=== PATIENT | male | born 1975 | race African-American/Black ===

== ENCOUNTER 2021-02-05 08:59 | Inpatient (IN) | payer MEDICARE, MEDICAID ==
[~2021-02-05] VITALS: Ht 188 cm; Wt 142.9 kg
[~2021-02-05 08:59] MED LIST: AMLODIPINE BESY10 MG PO; AMLODIPINE BESYL5 M1 PO; ASA81BEC PO; ASPIR 8181 MG PO; ATORVASTATIN CA10 MG PO; ATORVASTATIN CA40 MG PO; AZITHROMYCIN 2250 MG PO; BASAGLAR K100 UNIT/1 SUBQ; BYSTOLIC 5 MG5 M1 PO; BYSTOLIC10 MG PO; CARDIZEM CD 30300 M1 PO; CARVEDILOL25 MG PO; CATAPRES-TTS 20.2 MG TRANSDERM; CATAPRES0.1 MG PO; CATAPRES0.2 MG PO; CEFUROXIME500 MG PO; CHLORTHALIDONE25 MG PO; CIALIS20 MG PO; CLONIDINE HCL0.3 M3 PO; CLONIDINE-TTS0.3 MG TRANSDERM; COZAAR100 MG PO; DEMADEX20 MG PO; DIALYVITE TABL1 EACH PO; DIOVAN HCT 3201 EAC1 PO; EDARBI40 MG PO; FLEXERIL PO; GABAPENTIN 100100 MG PO; HUMALOG PE100 UNIT/M SC; HUMALOG100 UNIT/1 SUBQ; HUMALOG100 UNIT/2 SQ; HYDRALAZINE 2525 MG; HYDRALAZINE 2525 MG PO; HYDRALAZINE 5050 MG PO; HYDROCHLOROTH12.5 M1 PO; IRBESARTAN-HCT1 EAC1 PO; LANTUS100 UNIT/M SUBQ; LASIX 80 MG TAB80 MG PO; LEVEMIR SUBQ; LEVEMIR100 UNIT/1 SUBQ; LIPITOR 20 MG T20 M1 PO; LIPITOR40 MG PO; LISINOPRIL20 MG PO; LOSARTAN POTAS100 MG PO; METOLAZONE 5 MG5 MG PO; MINOXIDIL2.5 MG PO; NEURONTIN 300300 M1 PO; NEURONTIN300 MG PO; NORVASC10 MG PO; NORVASC5 MG PO; NOVOLOG100 UNIT/1 SUBQ; NOVOLOG100 UNIT/M SUBQ; OLMESARTAN MEDO40 MG PO; PAXIL10 MG PO; PAXIL40 MG PO; PHENERGAN 25 MG25 M1 PO; POTASSIUM20 PO; PROMS25 WY RECTAL; PROTONIX 20 MG20 M1 PO; REGLAN 5 MG TAB5 MG PO; RENVELA800 MG PO; SENSIPAR 30 MG30 M1 PO; SENSIPAR90 MG PO; SPIRONOLACTONE25 M1 PO; TESTOSTERO200 MG/1 M IM; TORSEMIDE20 MG PO; TOUJEO SOL300 UNIT/1 SUBQ; TRADJENTA5 MG PO; TRESIBA FL100 UNIT/1 SUBQ; TYLENOL325 MG PO; VELPHORO500 MG PO; VENTOLIN HFA 1818 GM INH; VIAGRA25 MG PO; VICTOZA 3-0.6 MG/0.1 SQ; VICTOZA0.6 MG/0.1 SUBQ; VITAMIN B12-FO1 EAC1 PO; ZOFRAN ODT4 MG PO
[2021-02-05 09:09] VITALS: BP 153/74
[2021-02-05 09:26] LABS: PCO2 VENOUS 15.8 mmHg (41.0-51.0); PO2 VENOUS 89.9 mmHg (35.0-45.0)
[2021-02-05 09:27] LABS: ABSOLUTE BASOPHILS 0.1 thou/uL (0.0-0.2); ABSOLUTE EOSINOPHILS 0.1 thou/uL (0.0-0.7); ABSOLUTE LYMPHOCYTES 0.8 thou/uL (0.8-5.3); ABSOLUTE MONOCYTES 1.2 thou/uL (0.0-1.2); ABSOLUTE NEUTROPHILS 7.1 thou/uL (1.6-8.1); BASOPHILS 0.8 %; EOSINOPHILS 0.9 %; HEMATOCRIT 38.3 % (42.0-52.0); HEMOGLOBIN 11.8 gm/dL (14.0-18.0); LYMPHOCYTES 8.8 %; MCH 27.3 pg (26.0-34.0); MCHC 30.9 g/dL (28.0-37.0); MCV 88.5 fL (80.0-100.0); NUCLEATED RBCS 0 /100WBC; PLATELET COUNT* 290 thou/uL (150-400); POLYS 76.5 %; RBC 4.32 mil/uL (4.50-6.00); RDW-CV 16.8 % (10.5-14.5); WBC 9.3 thou/uL (4.0-11.0)
[2021-02-05 09:38] LABS: CALCIUM 8.3 mg/dL (8.5-10.1); CREATININE 9.4 mg/dL (0.6-1.3)
[2021-02-05 09:40] LABS: ALBUMIN 3.1 g/dL (3.4-5.0); POTASSIUM 6.2 mmol/L (3.5-5.1); TOTAL BILIRUBIN 0.7 mg/dL (<0.1-1.0); TOTAL PROTEIN 7.5 g/dL (6.4-8.2)
[2021-02-05 16:32] LABS: CALCIUM 7.9 mg/dL (8.5-10.1); CREATININE 9.4 mg/dL (0.6-1.3)
--- NOTE | 2021-02-05 16:32 | EKG ---
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 : 1975 Requested By: Semaj Summers Order Number: [id number] MD: Mayco Le Measurements Intervals [place] Rate: 94 P: 63 [place]: 154 QRS: 90 QRSD: 97 T: -2 QT: 394 QTc: 493 Interpretive Statements Sinus rhythm Low voltage with right axis deviation Anteroseptal infarct, old cannot be excluded Nonspecific inferior ST-T abnormalities No previous ECG available for comparison Electronically Signed On 02-05-2021 16:32:10 CDT by Mayco Le [email or web address] <ELECTRONICALLY SIGNED> By: Mayco Le MD, [facility] 02/05/21 1632 0903 Mayco Le MD, [facility] /EPI
--- NOTE | 2021-02-05 16:34 | EKG ---
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: JAIDEN : 1975 Requested By: Semaj Summers Order Number: [id number] MD: Mayco Le Measurements Intervals [place] Rate: 93 P: 59 FL: 144 QRS: 85 QRSD: 98 T: -5 QT: 395 QTc: 492 Interpretive Statements Sinus rhythm Probable left atrial enlargement Anteroseptal scar cannot be excluded ST elev, probable normal early repol pattern Borderline prolonged QT interval Baseline wander in lead(s) V3 No previous ECG available for comparison Electronically Signed On 02-05-2021 16:34:32 CDT by Mayco Le [email or web address] <ELECTRONICALLY SIGNED> By: Mayco Le MD, [facility] 02/05/21 1634 1014 1014 Mayco Le MD, [facility] /EPI
[2021-02-05 16:35] LABS: POTASSIUM 4.7 mmol/L (3.5-5.1)
--- NOTE | 2021-02-05 16:35 | EKG ---
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 : 1975 Requested By: Semaj Summers Order Number: [id number] MD: Mayco Le Measurements Intervals [place] Rate: 89 P: 63 AR: 143 QRS: 87 QRSD: 100 T: 4 QT: 415 QTc: 505 Interpretive Statements Sinus rhythm Probable left atrial enlargement Low voltage with right axis deviation Prolonged QT interval Baseline wander in lead(s) V3 Compared to ECG 02/05/2021 10:14:29 Right-axis deviation persists Nonspecific inferior ST-T abnormalities persist Electronically Signed On 02-05-2021 16:35:13 CDT by Mayco Le [email or web address] <ELECTRONICALLY SIGNED> By: Mayco Le MD, [facility] 02/05/21 1635 1015 1015 Mayco Le MD, [facility] /EPI
[2021-02-05 18:47] VITALS: BP 148/79
[2021-02-05 19:32] LABS: BE -11.3 mmol/L (-2 to +3); PCO2 VENOUS 37.6 mmHg (41.0-51.0); PO2 VENOUS 147.9 mmHg (35.0-45.0)
[2021-02-05 22:10] VITALS: BP 163/69
[2021-02-05 23:01] VITALS: BP 192/90
[2021-02-06] VITALS (44 sets, daily range): BP systolic 73–172; BP diastolic 38–81
--- NOTE | 2021-02-06 02:40 | NUR ---
started pt on Bipap 15 Ipap pt unable to beryl the pressure decreased to 10 Ipap Pt stated beryl better. cont to monitor.
[2021-02-06 03:24] LABS: HEMATOCRIT 35.6 % (42.0-52.0); MCH 27.7 pg (26.0-34.0); MCHC 33.8 g/dL (28.0-37.0); MCV 82.1 fL (80.0-100.0); MPV 7.6 fl. (7.2-11.1); NUCLEATED RBCS 0 /100WBC; PLATELET COUNT* 266 thou/uL (150-400); RBC 4.34 mil/uL (4.50-6.00); RDW-CV 16.2 % (10.5-14.5); WBC 7.5 thou/uL (4.0-11.0)
[2021-02-06 03:25] LABS: ALBUMIN 2.9 g/dL (3.4-5.0); ALKALINE PHOSPHATASE 159 U/L (46-116); ANION GAP 12 mmol/L (7-16); BUN 44 mg/dL (7-18); CALCIUM 8.1 mg/dL (8.5-10.1); CHLORIDE 98 mmol/L (98-107); CO2 29 mmol/L (21-32); GLUCOSE 147 mg/dL (70-99); MAGNESIUM 2.1 mg/dL (1.8-2.4); SGOT 22 U/L (15-37); SGPT 11 U/L (30-65); SODIUM 139 mmol/L (136-145); TOTAL BILIRUBIN 0.5 mg/dL (<0.1-1.0); TOTAL PROTEIN 7.1 g/dL (6.4-8.2)
[2021-02-06 03:27] LABS: ALBUMIN 2.9 g/dL (3.4-5.0); CALCIUM 8.2 mg/dL (8.5-10.1); MAGNESIUM 2.1 mg/dL (1.8-2.4); PHOSPHORUS* 3.2 mg/dL (2.5-4.9)
[2021-02-06 03:30] LABS: CREATININE 6.6 mg/dL (0.6-1.3); POTASSIUM 3.5 mmol/L (3.5-5.1)
[2021-02-06 04:30] LABS: ABSOLUTE EOSINOPHILS 0.4 thou/uL (0.0-0.7); ABSOLUTE LYMPHOCYTES 0.5 thou/uL (0.8-5.3); ABSOLUTE MONOCYTES 1.3 thou/uL (0.0-1.2); ABSOLUTE NEUTROPHILS 5.4 thou/uL (1.6-8.1); ATYPICAL LYMPHS 2 %; OVALOCYTES 1+; PLATELET ESTIMATE ADEQUATE; TOXIC GRANULATION 2+
[2021-02-06 08:26] LABS: ALBUMIN 2.8 g/dL (3.4-5.0); CALCIUM 8.3 mg/dL (8.5-10.1); MAGNESIUM 2.1 mg/dL (1.8-2.4); PHOSPHORUS* 3.9 mg/dL (2.5-4.9); POTASSIUM 4.1 mmol/L (3.5-5.1)
--- NOTE | 2021-02-06 14:57 | NUR ---
this pattern chart writer assumed care of pt at 0700 pt was downgraded to teley status per dr suárez insulin gtt d/c labs within normal range sliding scale initiated at 1400 pt became hypotensive paged the dr for orders 500ml fluid bolus ordered per dr suárez keep patient in icu overnight
--- NOTE | 2021-02-06 16:13 | NUR ---
Patient admitted to ICU for DKA and hyperkalemia. Was on insulin gtt but it has since been turned off. Met with patient at bedside with his Minna. Patient currently lives at home in a house with his and 2 children. There are 5-6 stairs inside the home. Prior to admission patient was able to ambulate independently and complete all ADLs with minimum assistance. One of the patient sons is currently his reed or wind instrument repairer through [facility]. states that their son is paid to help the patient 2 days/week for up to 20 hours. The son that helps lives at home with the patient. No hx of O2, bipap/cpap, infusion therapy or BHS. Current dialysis patient at [facility]. Patient goes to dialysis [facility]. Patient recieved dialysis yesterday while at the hospital. PCP is Pamela Heard ([facility]). is listed as DPOA on facesheet but there is no paperwork on file. states that she is his DPOA. Asked for paperwork to be jaylan up. asked about obtaining a shower chair and grab bars before discharge. Provided patient with OTC resource information for patient to obtain equipment via his Medicare benefits. Patient may downgrade to tele today. DC summary will need to be faxed to [facility] at discharge. May need HH at discharge. [facility] PH: [phone] F: [phone]
[2021-02-07] VITALS (30 sets, daily range): BP systolic 101–211; BP diastolic 49–99
--- NOTE | 2021-02-07 02:52 | NUR ---
2200-PT HAS DRY HEAVES WITH NAUSEA. REFUSED BIPAP
[2021-02-07 04:17] LABS: ALBUMIN 2.7 g/dL (3.4-5.0); CALCIUM 8.6 mg/dL (8.5-10.1); PHOSPHORUS* 4.6 mg/dL (2.5-4.9); POTASSIUM 3.8 mmol/L (3.5-5.1)
[2021-02-07 04:18] LABS: CREATININE 9.2 mg/dL (0.6-1.3)
--- NOTE | 2021-02-07 05:49 | NUR ---
ASSUMED CARE AT 1910H, ON RA AND TOLERATED. WITH SLEEP APNEA NOTED, BIPAP NOT USE BECAUSE PT WAS NAUSEOUS. PRN MED GIVEN FOR NAUSEA. NO EPISODE OF HYPOTENSION. CONTINUE MONITORING AND TOWARDS GOAL.
--- NOTE | 2021-02-07 09:43 | NUR ---
ICU Rounds: Patient stayed in ICU overnight due to hypotension. Fluid bolus given. If patient is considered stable patient can downgrade to tele today. Patient could dc over the weekend if health remains stable. NO needs anticipated at discharge. feels she has enought support at home to care for patient.
[2021-02-08] VITALS: BP 137/70
--- NOTE | 2021-02-08 03:29 | NUR ---
ASSUMED CARE OF PT AT 1900. PT IS ALERT AND ORIENTED. VSS. PERRLA. NO COMPLAINTS OF PAIN. PT IS IN SIUS RYTHM ON THE TELEMETRY. PT IS RESTING COMFORTABLY IN BED. RESPIRATIONS ARE EVEN AND NONLABORED. WILL CONTINUE TO MONITOR PT.
[2021-02-08 04:00] VITALS: BP 173/84
[2021-02-08 08:00] VITALS: BP 160/80
[2021-02-08] MEDS ORDERED: MINOXIDIL2.5 MG PO (09:51)
[2021-02-08 10:56] LABS: CALCIUM 8.2 mg/dL (8.5-10.1); POTASSIUM 3.6 mmol/L (3.5-5.1)
[2021-02-08 10:57] LABS: CREATININE 7.4 mg/dL (0.6-1.3)
[2021-02-08 12:00] VITALS: BP 190/90
[2021-02-08 12:53] VITALS: BP 190/90
--- NOTE | 2021-02-08 13:56 | NUR ---
patient resting in room in bed. call light within reach. No complaints at this time. d/c papers given, verbalized understanding. IV taken out, heart monitor off. Waiting for . Has all belongings, will take out by wheelchair.
--- NOTE | 2021-02-08 15:02 | CON ---
[address] [address] CONSULTATION Name: NORTH HUYNH Room: [address] IN M.R.#: [id number] Admission: 02/05/21 Attend Phys: Micheline Lei MD Discharge: Date of : 75 Report #: [id number] THIS REPORT FOR: cc: Pamela Heard DNP, Mary E. DNP Khan, Abid R. MD ~ DATE OF CONSULTATION: 02/06/2021 CONSULT REQUESTED BY: Dr. Micheline Lei. REASON FOR CONSULTATION: End-stage kidney disease. HISTORY OF PRESENT ILLNESS: A 45-year-old gentleman with a history of end-stage kidney disease, on hemodialysis Wednesday, Wednesday and Wednesday, who was admitted with DKA. He also recently underwent a Omar-en-Y gastric bypass. He had a pH of 7.09 and a bicarbonate of 4 on admission with a blood sugar of nearly 600. He was urgently dialyzed last night, tolerated that well. He currently is a bit groggy, but awake and alert, able to answer questions. He has no complaints at this time. REVIEW OF SYSTEMS: Constitutional, psych, heme, eyes, ENT, respiratory, cardiac, GI, , endocrine, all negative except as documented above. PAST MEDICAL HISTORY: End-stage kidney disease, on hemodialysis, insulin-dependent diabetes, hypertension, morbid obesity, status post Omar-en-Y gastric bypass, obstructive sleep apnea, on CPAP, history of laparoscopic cholecystectomy, depression, anxiety, dyslipidemia. SOCIAL HISTORY: No tobacco. FAMILY HISTORY: Not pertinent for this 45-year-old gentleman. CURRENT MEDICATIONS: Reviewed. PHYSICAL EXAMINATION: VITAL SIGNS: Blood pressure is 129/56, pulse 85, respirations 21, temperature 35.9. GENERAL: No acute distress. Eyes are open. EARS: Externally normal. CARDIOVASCULAR: Regular rate. LUNGS: No crackles. ABDOMEN: Soft. MUSCULOSKELETAL: Nontender. PSYCHIATRIC: Somnolent, [place] [address] CONSULTATION Name: NORTH HUYNH Room: [address] IN [facility].#: [id number] Admission: 02/05/21 Attend Phys: Micheline Lei MD Discharge: Date of : 75 Report #: [id number] LABORATORY DATA: Sodium 138, potassium 4.1, chloride 97, bicarbonate 21, BUN 47, creatinine 7, glucose 239, calcium 8.3, phosphorus 3.9, magnesium 2.1. White cell count 7.5, hemoglobin 12, platelets 266. ASSESSMENT AND PLAN: 1. End-stage kidney disease, on hemodialysis Wednesday, Wednesday and Wednesday at the [facility] under the care of Dr. Vega. He dialyzes for 5-1/2 hours. 2. Insulin-dependent diabetes with an admission diagnosis of DKA with a bicarbonate of 5 and a pH of 7.09. 3. Hypertension. 4. Dyslipidemia. 5. Morbid obesity with recent gastric bypass surgery. 6. Obstructive sleep apnea, on CPAP. 7. Depression/anxiety. 8. Secondary hyperparathyroidism, on sevelamer. PLAN: No indications for further dialysis today. We will plan dialysis tomorrow. We will follow for dialysis needs and check labs again in a.m. Thank you for requesting my opinion in the care and management of this patient. <ELECTRONICALLY SIGNED> By: Gogo Shetty MD 02/08/21 1502 0925 1014Asheela Shetty MD /nt
== END 2021-02-08 14:20 | disposition home or self-care (01) | DRG 637 ==
LOC: M.ERS 08:59 → M.TBA-ER 14:19 → M.ERS 14:19 → M.ICU 14:45 → M.TBA-ER 14:45 → M.ICU 21:57 → M.2W 02-07 15:06
PROVIDERS: Emergency Medicine Emergency Medical Services; Internal Medicine Nephrology; ADMIT Internal Medicine; ATTEND Internal Medicine
PROC: 5A09357 Assistance with Respiratory Ventilation, Less than 24 Consecutive Hours, Continuous Positive Airway Pressure (ICD-10-PCS; principal; 2021-02-06)
DX: E11.10 Type 2 diabetes mellitus with ketoacidosis without coma (principal); N18.6 End stage renal disease; G93.41 Metabolic encephalopathy; I12.0 Hypertensive chronic kidney disease with stage 5 chronic kidney disease or end stage renal disease; Z68.41 Body mass index [BMI] 40.0-44.9, adult; N17.9 Acute kidney failure, unspecified; E11.00 Type 2 diabetes mellitus with hyperosmolarity without nonketotic hyperglycemic-hyperosmolar coma (NKHHC); E66.01 Morbid (severe) obesity due to excess calories; E78.5 Hyperlipidemia, unspecified; F41.8 Other specified anxiety disorders; E11.22 Type 2 diabetes mellitus with diabetic chronic kidney disease; G47.33 Obstructive sleep apnea (adult) (pediatric); F32.9 Major depressive disorder, single episode, unspecified; E87.5 Hyperkalemia; F41.9 Anxiety disorder, unspecified; E78.00 Pure hypercholesterolemia, unspecified; Z20.822 Contact with and (suspected) exposure to COVID-19; Z98.84 Bariatric surgery status; Z99.81 Dependence on supplemental oxygen; Z79.4 Long term (current) use of insulin; Z79.899 Other long term (current) drug therapy; Z86.73 Personal history of transient ischemic attack (TIA), and cerebral infarction without residual deficits; Z90.49 Acquired absence of other specified parts of digestive tract; Z88.8 Allergy status to other drugs, medicaments and biological substances; Z91.013 Allergy to seafood; Z99.2 Dependence on renal dialysis

== ENCOUNTER 2021-05-28 18:20 | Inpatient (IN) | payer MEDICARE, MEDICAID ==
[~2021-05-28] VITALS: Ht 175.3 cm; Wt 109.3 kg
--- NOTE | ~2021-05-28 | EEG ---
[address] [address] EEG STUDY REPORT Name: NORTH HUYNH GORDY Room: [address] IN M.R.#: [id number] Admission: 05/28/21 Attend Phys: Akua Mcintyre Discharge: 05/31/21 Date of : 75 Report #: [id number] THIS REPORT FOR: cc: Pamela Heard DNP, Mary E. DNP Khosla, Parveen K. MD ~ DATE OF SERVICE: 05/30/2021 This patient is being evaluated for some weakness. EEG was done by placing the electrode by standard 10-20 system of electrode placement. Both referential and sequential montages were used for recording. Background activity in this patient's EEG is about 7 Hz and 15 microvolt. The patient became drowsy that is associated with even more slowing. Photic stimulation is unremarkable. Throughout the record, no active epileptiform activity was noticed. IMPRESSION: This patient's EEG is slow, which is a nonspecific finding which can occur with encephalopathy, effect of psychotropic medication, dementia, etc. Clinical correlation is recommended. By: 1330 [id number] Treviño MD /nt
--- NOTE | ~2021-05-28 | CON ---
[address] [address] CONSULTATION Name: LINONORTH LEE Room: [address] ADM IN M.R.#: [id number] Admission: 05/28/21 Attend Phys: Akua Mcintyre Discharge: Date of : 75 Report #: [id number] THIS REPORT FOR: cc: Pamela Heard DNP, Mary E. DNP Khosla, Parveen K. MD ~ DATE OF CONSULTATION: 05/29/2021 HISTORY OF PRESENT ILLNESS: This is a 45-year-old male patient, very difficult to evaluate. He basically sleeps there and will open his eyes and follow commands when he feels like, but other times he will not follow. He will talk very softly and he can raise his voice some times, but he will not do it on a persistent basis. There is a long note in the patient's chart about his condition, which is complicated. He apparently had a stroke within a month. I am not sure how did that stroke affected him, but it is like it was an insular stroke. I will not repeat the note from Emergency Room here. He was getting dialysis when I saw him. As I said, some times he will say some time will not, but he can say when he wants to. He has a history of hypertension, but after gastric bypass surgery his hypertension actually became hypotension. He is a dialysis patient. He has ataxia . He has chest pain. He has congestive heart failure. He has a history of dehydration in the past. He has a history of diabetes, has a history of headaches, but he was not complaining of headache when I saw him. This was his relevant 14-point review of systems. PAST MEDICAL HISTORY: Positive for being on dialysis. FAMILY HISTORY: He will not tell me. SOCIAL HISTORY: Apparently, he is and we will try to get hold of the patient's . PHYSICAL EXAMINATION: His examination was limited because he will not cooperate even after spending a lot of time with him. Ultimately, he opened his eyes, he followed the commands when he wants to, but not most of the time. He talks very softly, very difficult to understand his voice. His cranial nerve examination and neuromuscular examination was attempted, is very incomplete. He will not relax for reflexes and he will not cooperate with the sensory examination. Cardiac examination appear noncontributory. No respiratory difficulty was noticed. Blood pressure is 159/89, respirations 18, pulse is 80, temperature is 97. LABORATORY DATA: Labs indicate a white count of 9.1. He did have a CT scan of the head and C-spine when he came in that showed no acute process, but the patient had an MRI and CT angiogram in [facility] which is not available to me but report is available. He also had psych consult for [place] [address] CONSULTATION Name: NORTH HUYNH Room: [address] IN ..#: [id number] Admission: 05/28/21 Attend Phys: Akua Mcintyre Discharge: Date of : 75 Report #: [id number] sure what the behavior was that time. IMPRESSION: Impression is very difficult to form in this patient and tell how much symptoms are organic and how much is psychogenic. He is very predisposed to have stroke and I am going to order an in this regard to look at the MRI. If he already had a CT angio of the head and neck recently, we will just get those records, but if MRI shows a new stroke then we may have to repeat the MRA. I will also get an EEG done. I will get as such vitamin B12 and copper because of his previous gastric bypass surgery. Rest of the workup will depend upon the outcome of these testings. He had a stroke within a month and symptoms are going on at least for days, so he is not any intervention candidate, but we will await this workup and go from there. Thank you very much for this referral Dr. Reilly. We will follow up this patient with you from tomorrow. By: 09 29Pierre Treviño MD /matilda
[2021-05-28 18:23] VITALS: BP 126/60
[2021-05-28] MEDS ORDERED: ELIQUIS5 MG PO (18:46)
[2021-05-28] MEDS ORDERED: COLACE100 MG PO (18:47)
[2021-05-28] MEDS ORDERED: LIPITOR 10 MG10 M1 PO (18:47)
[2021-05-28] MEDS ORDERED: TUMS ULTRA400 MG PO (18:47)
[2021-05-28] MEDS ORDERED: LANTUS SUBQ (18:48)
[2021-05-28] MEDS ORDERED: REGLAN 5 MG TAB5 MG PO (18:48)
[2021-05-28] MEDS ORDERED: KEPPRA XR500 MG PO (18:48)
[2021-05-28] MEDS ORDERED: PAXIL40 MG PO (18:49)
[2021-05-28] MEDS ORDERED: MIDODRINE HCL 55 M1 PO (18:49)
[2021-05-28 18:57] LABS: ABSOLUTE BASOPHILS 0.1 thou/uL (0.0-0.2); ABSOLUTE EOSINOPHILS 0.2 thou/uL (0.0-0.7); ABSOLUTE LYMPHOCYTES 2.3 thou/uL (0.8-5.3); ABSOLUTE MONOCYTES 1.4 thou/uL (0.0-1.2); ABSOLUTE NEUTROPHILS 5.1 thou/uL (1.6-8.1); BASOPHILS 1.1 %; EOSINOPHILS 2.4 %; HEMATOCRIT 34.2 % (42.0-52.0); HEMOGLOBIN 10.9 gm/dL (14.0-18.0); LYMPHOCYTES 25.5 %; MCH 27.4 pg (26.0-34.0); MCV 85.8 fL (80.0-100.0); MONOCYTES 14.9 %; MPV 8.1 fl. (7.2-11.1); NUCLEATED RBCS 0 /100WBC; PLATELET COUNT* 319 thou/uL (150-400); POLYS 56.1 %; RBC 3.99 mil/uL (4.50-6.00); RDW-CV 16.6 % (10.5-14.5); WBC 9.1 thou/uL (4.0-11.0)
[2021-05-28 19:03] LABS: CALCIUM 9.3 mg/dL (8.5-10.1); POTASSIUM 3.6 mmol/L (3.5-5.1)
[2021-05-28 19:19] LABS: ALBUMIN 2.8 g/dL (3.4-5.0); TOTAL BILIRUBIN 0.6 mg/dL (<0.1-1.0); TOTAL PROTEIN 7.1 g/dL (6.4-8.2)
[2021-05-29] VITALS (7 sets, daily range): BP systolic 140–159; BP diastolic 71–89
--- NOTE | 2021-05-29 08:11 | EKG ---
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: [place] : 1975 Requested By: Radha Matthews Order Number: [id number] MD: Jonathan Gan Measurements Intervals [place] Rate: 80 P: 56 [place]: 140 QRS: 76 QRSD: 99 T: -41 QT: 412 QTc: 476 Interpretive Statements Sinus rhythm Borderline low voltage, extremity leads Nonspecific T abnormalities, inferior leads Nonspecific ST segment depression Compared to ECG 02/05/2021 10:15:40 T-wave abnormality now present Right-axis deviation no longer present Electronically Signed On 05-29-2021 8:11:37 CDT by Jonathan Gan [email or web address] <ELECTRONICALLY SIGNED> By: Jonathan Gan MD, FACC 05/29/21 0811 03 03 Jonathan Gan MD, FACC /EPI
[2021-05-29] MEDS ORDERED: RENVELA0.8 GM PO (18:36)
[2021-05-29 23:00] LABS: ABSOLUTE BASOPHILS 0.1 thou/uL (0.0-0.2); ABSOLUTE EOSINOPHILS 0.3 thou/uL (0.0-0.7); ABSOLUTE LYMPHOCYTES 1.5 thou/uL (0.8-5.3); ABSOLUTE MONOCYTES 0.9 thou/uL (0.0-1.2); ABSOLUTE NEUTROPHILS 4.5 thou/uL (1.6-8.1); EOSINOPHILS 3.7 %; HEMATOCRIT 35.9 % (42.0-52.0); HEMOGLOBIN 11.4 gm/dL (14.0-18.0); LYMPHOCYTES 20.7 %; MCH 27.5 pg (26.0-34.0); MCHC 31.8 g/dL (28.0-37.0); MCV 86.5 fL (80.0-100.0); MPV 7.5 fl. (7.2-11.1); NUCLEATED RBCS 0 /100WBC; PLATELET COUNT* 257 thou/uL (150-400); POLYS 62.6 %; RBC 4.15 mil/uL (4.50-6.00); RDW-CV 16.8 % (10.5-14.5); WBC 7.3 thou/uL (4.0-11.0)
[2021-05-29 23:13] LABS: ALBUMIN 2.7 g/dL (3.4-5.0); CALCIUM 9.3 mg/dL (8.5-10.1); POTASSIUM 3.8 mmol/L (3.5-5.1); TOTAL BILIRUBIN 0.5 mg/dL (<0.1-1.0); TOTAL PROTEIN 6.9 g/dL (6.4-8.2)
[2021-05-29 23:16] LABS: CREATININE 6.4 mg/dL (0.6-1.3)
[2021-05-30] VITALS: BP 159/85
[2021-05-30 04:00] VITALS: BP 139/87
[2021-05-30 04:09] LABS: ABSOLUTE BASOPHILS 0.1 thou/uL (0.0-0.2); ABSOLUTE EOSINOPHILS 0.3 thou/uL (0.0-0.7); ABSOLUTE LYMPHOCYTES 1.4 thou/uL (0.8-5.3); ABSOLUTE MONOCYTES 0.8 thou/uL (0.0-1.2); ABSOLUTE NEUTROPHILS 3.4 thou/uL (1.6-8.1); BASOPHILS 1.1 %; EOSINOPHILS 5.2 %; HEMATOCRIT 32.5 % (42.0-52.0); HEMOGLOBIN 10.6 gm/dL (14.0-18.0); MCH 27.7 pg (26.0-34.0); MCHC 32.7 g/dL (28.0-37.0); MCV 84.7 fL (80.0-100.0); MONOCYTES 13.1 %; MPV 7.7 fl. (7.2-11.1); NUCLEATED RBCS 0 /100WBC; PLATELET COUNT* 255 thou/uL (150-400); POLYS 57.6 %; RBC 3.84 mil/uL (4.50-6.00); RDW-CV 16.8 % (10.5-14.5); WBC 5.9 thou/uL (4.0-11.0)
[2021-05-30 04:29] LABS: ALBUMIN 2.6 g/dL (3.4-5.0); CALCIUM 9.1 mg/dL (8.5-10.1); CREATININE 6.4 mg/dL (0.6-1.3); POTASSIUM 3.5 mmol/L (3.5-5.1); TOTAL BILIRUBIN 0.4 mg/dL (<0.1-1.0); TOTAL PROTEIN 6.6 g/dL (6.4-8.2)
[2021-05-30 08:45] VITALS: BP 142/76
[2021-05-30 13:45] VITALS: BP 120/64
[2021-05-30 19:40] VITALS: BP 124/73
[2021-05-31] VITALS: BP 101/64
[2021-05-31 04:00] VITALS: BP 150/78
[2021-05-31 08:00] VITALS: BP 121/74
[2021-05-31 08:26] LABS: ABSOLUTE BASOPHILS 0.1 thou/uL (0.0-0.2); ABSOLUTE EOSINOPHILS 0.3 thou/uL (0.0-0.7); ABSOLUTE LYMPHOCYTES 1.5 thou/uL (0.8-5.3); ABSOLUTE MONOCYTES 0.7 thou/uL (0.0-1.2); ABSOLUTE NEUTROPHILS 3.2 thou/uL (1.6-8.1); BASOPHILS 1.2 %; EOSINOPHILS 4.8 %; HEMATOCRIT 33.9 % (42.0-52.0); HEMOGLOBIN 10.8 gm/dL (14.0-18.0); LYMPHOCYTES 25.7 %; MCH 27.3 pg (26.0-34.0); MCHC 31.9 g/dL (28.0-37.0); MCV 85.6 fL (80.0-100.0); MONOCYTES 12.7 %; MPV 8.1 fl. (7.2-11.1); NUCLEATED RBCS 0 /100WBC; PLATELET COUNT* 244 thou/uL (150-400); POLYS 55.6 %; RBC 3.96 mil/uL (4.50-6.00); RDW-CV 16.6 % (10.5-14.5); WBC 5.8 thou/uL (4.0-11.0)
[2021-05-31 08:55] LABS: ALBUMIN 2.7 g/dL (3.4-5.0); CALCIUM 9.5 mg/dL (8.5-10.1); CREATININE 5.6 mg/dL (0.6-1.3); POTASSIUM 3.6 mmol/L (3.5-5.1); TOTAL BILIRUBIN 0.4 mg/dL (<0.1-1.0); TOTAL PROTEIN 7.1 g/dL (6.4-8.2)
[2021-05-31 12:46] VITALS: BP 90/58
[2021-05-31 14:18] VITALS: BP 90/58
== END 2021-05-31 16:47 | disposition home health service (06) | DRG 291 ==
LOC: M.ERS 18:20 → M.2W 20:54 → M.TBA-ER 20:54 → M.2W 05-29 10:01
PROVIDERS: Physician Assistant; ADMIT Internal Medicine; ATTEND Internal Medicine
PROC: 5A1D70Z Performance of Urinary Filtration, Intermittent, Less than 6 Hours Per Day (ICD-10-PCS; principal; 2021-05-29)
PROC: 5A1D70Z Performance of Urinary Filtration, Intermittent, Less than 6 Hours Per Day (ICD-10-PCS; 2021-05-30)
DX: I13.2 Hypertensive heart and chronic kidney disease with heart failure and with stage 5 chronic kidney disease, or end stage renal disease (principal); I50.33 Acute on chronic diastolic (congestive) heart failure; G93.41 Metabolic encephalopathy; N18.6 End stage renal disease; E44.0 Moderate protein-calorie malnutrition; E78.00 Pure hypercholesterolemia, unspecified; F32.9 Major depressive disorder, single episode, unspecified; F41.9 Anxiety disorder, unspecified; E11.65 Type 2 diabetes mellitus with hyperglycemia; Z20.822 Contact with and (suspected) exposure to COVID-19; I77.0 Arteriovenous fistula, acquired; D63.1 Anemia in chronic kidney disease; Z79.899 Other long term (current) drug therapy; E11.22 Type 2 diabetes mellitus with diabetic chronic kidney disease; Z79.4 Long term (current) use of insulin; Z86.73 Personal history of transient ischemic attack (TIA), and cerebral infarction without residual deficits; Z91.041 Radiographic dye allergy status; Z91.013 Allergy to seafood; Z90.49 Acquired absence of other specified parts of digestive tract; Z87.11 Personal history of peptic ulcer disease; Z79.82 Long term (current) use of aspirin; Z28.21 Immunization not carried out because of patient refusal

== ENCOUNTER 2021-08-02 00:09 | Emergency (ER) | payer MEDICARE, MEDICAID ==
[~2021-08-02] VITALS: Ht 175.3 cm; Wt 104.3 kg
[~2021-08-02 00:09] MED LIST changes: +COLACE100 MG PO; +ELIQUIS5 MG PO; +KEPPRA XR500 MG PO; +LANTUS SUBQ; +LIPITOR 10 MG10 M1 PO; +MIDODRINE HCL 55 M1 PO; +RENVELA0.8 GM PO; +TUMS ULTRA400 MG PO
[2021-08-02 01:08] LABS: ABSOLUTE BASOPHILS 0.1 thou/uL (0.0-0.2); ABSOLUTE EOSINOPHILS 0.2 thou/uL (0.0-0.7); ABSOLUTE LYMPHOCYTES 1.4 thou/uL (0.8-5.3); ABSOLUTE MONOCYTES 0.5 thou/uL (0.0-1.2); ABSOLUTE NEUTROPHILS 2.3 thou/uL (1.6-8.1); BASOPHILS 1.4 %; EOSINOPHILS 3.9 %; HEMOGLOBIN 12.3 gm/dL (14.0-18.0); LYMPHOCYTES 31.7 %; MCH 28.1 pg (26.0-34.0); MCHC 31.6 g/dL (28.0-37.0); MCV 89.1 fL (80.0-100.0); MONOCYTES 11.8 %; MPV 8.5 fl. (7.2-11.1); NUCLEATED RBCS 1 /100WBC; PLATELET COUNT* 244 thou/uL (150-400); POLYS 51.2 %; RBC 4.37 mil/uL (4.50-6.00); RDW-CV 17.8 % (10.5-14.5); WBC 4.4 thou/uL (4.0-11.0)
[2021-08-02 01:16] LABS: CALCIUM 8.8 mg/dL (8.5-10.1); CREATININE 3.6 mg/dL (0.6-1.3); POTASSIUM 3.7 mmol/L (3.5-5.1)
[2021-08-02 02:58] VITALS: BP 93/58
--- NOTE | 2021-08-02 10:58 | EKG ---
[place] [address] ELECTROCARDIOGRAM REPORT Name: NORTH HUYNH Room: [facility]#: [id number] Admission: 08/02/21 Attend Phys: Discharge: 08/02/21 Date of : 75 Date of Service: 08/02/21 0050 Report #: [id number] THIS REPORT FOR: //name// [facility] ED Test Date: 2021-08-02 Test Time: 00:50:20 Pat Name: NORTH HUYNH Department: Room: Gender: Loin Trimmer: : 1975 Requested By: Cassie Lomeli Order Number: [id number] MD: Rodney Serrano Measurements Intervals [place] Rate: 79 P: 63 [place]: 139 QRS: 76 QRSD: 91 T: -37 QT: 416 QTc: 477 Interpretive Statements Sinus rhythm Nonspecific T abnormalities, lateral leads Borderline prolonged QT interval Compared to ECG 05/28/2021 19:04:40 No significant changes Electronically Signed On 08-02-2021 10:58:06 [employer] by Rodney Serrano [email or web address] <ELECTRONICALLY SIGNED> By: Rodney Serrano MD, [facility] 08/02/21 1058 0050 0050 Rodney Serrano MD, [facility] /EPI
== END 2021-08-02 03:00 | disposition home or self-care (01) ==
LOC: M.ERS 00:09
PROVIDERS: Emergency Medicine
DX: I95.1 Orthostatic hypotension (principal); E78.00 Pure hypercholesterolemia, unspecified; E11.22 Type 2 diabetes mellitus with diabetic chronic kidney disease; I12.0 Hypertensive chronic kidney disease with stage 5 chronic kidney disease or end stage renal disease; N18.6 End stage renal disease; F32.9 Major depressive disorder, single episode, unspecified; F41.9 Anxiety disorder, unspecified; Z99.2 Dependence on renal dialysis; Z90.49 Acquired absence of other specified parts of digestive tract; Z86.73 Personal history of transient ischemic attack (TIA), and cerebral infarction without residual deficits; Z98.84 Bariatric surgery status; Z79.899 Other long term (current) drug therapy; Z79.4 Long term (current) use of insulin; Z79.82 Long term (current) use of aspirin; Z91.041 Radiographic dye allergy status; Z91.013 Allergy to seafood